=== PATIENT | male | born 1990 | race Caucasian/White ===

== ENCOUNTER 2019-06-29 04:46 | Emergency (ER) | payer BC ==
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
[2019-06-29] MEDS ORDERED: Diphtheria,Pertussis(Acell),Tetanus Vaccine 0.5 ML SDV IM ONE (05:24)
[2019-06-29] MEDS ORDERED: Acetaminophen 500 MG Tab PO ONE (06:04)
== END 2019-06-29 07:10 | disposition home or self-care (01) ==
LOC: FB.ED 04:46
DX: S06.0X1A Concussion with loss of consciousness of 30 minutes or less, initial encounter (principal); S01.412A Laceration without foreign body of left cheek and temporomandibular area, initial encounter; S01.512A Laceration without foreign body of oral cavity, initial encounter; S00.83XA Contusion of other part of head, initial encounter; R59.0 Localized enlarged lymph nodes; J45.909 Unspecified asthma, uncomplicated; E66.9 Obesity, unspecified; F17.220 Nicotine dependence, chewing tobacco, uncomplicated; Z23 Encounter for immunization; Z68.31 Body mass index [BMI] 31.0-31.9, adult; Y09 Assault by unspecified means; Y92.89 Other specified places as the place of occurrence of the external cause
CPT/HCPCS: 70450; 70486; 72125; 90715; 99284-25; A9270-GY